=== PATIENT | male | born 1950 | race Hispanic/Latino ===

== ENCOUNTER → 2023-11-20 | Outpatient (CLI) | payer OTHER | END | disposition home or self-care (01) | LOC: RAH 12:30 | PROVIDERS: ATTEND Internal Medicine Cardiovascular Disease | DX: Z13.6 Encounter for screening for cardiovascular disorders (principal); I25.5 Ischemic cardiomyopathy | CPT/HCPCS: 75571 ==

== ENCOUNTER 2024-01-31 07:28 | Day surgery (SDC) | payer OTHER, MEDICARE ==
[2024-01-28 10:55] VITALS: BP 101/65; PULSE 87; RESP 16
[2024-01-28 11:14] LABS: BASOPHILS # (AUTO) 0.04 K/uL (0.00-0.20); BASOPHILS % (AUTO) 0.5 % (0.0-5.0); EOSINOPHILS # (AUTO) 0.13 K/uL (0.00-0.70); EOSINOPHILS % (AUTO) 1.8 % (0.0-8.0); HEMATOCRIT 45.5 % (42-54); IMMATURE GRANULOCYTE ABSOLUTE 0.04 K/uL (0-1); LYMPHOCYTES # (AUTO) 2.2 K/uL (1.0-4.8); LYMPHOCYTES % (AUTO) 30.1 % (21.0-51.0); MEAN CORPUSCULAR HEMOGLOBIN 32.2 pg (27.0-33.0); MEAN CORPUSCULAR HGB CONC 34.1 g/dL (32.0-36.0); MEAN CORPUSCULAR VOLUME 94.6 fL (79-99); MONOCYTES # (AUTO) 0.6 K/uL (0.1-1.0); MONOCYTES % (AUTO) 8.2 % (3.0-13.0); NEUTROPHILS # (AUTO) 4.4 K/uL (1.8-7.7); NEUTROPHILS % (AUTO) 58.9 % (40.0-77.0); PLATELET COUNT (AUTO) 219 K/uL (130-400); RED BLOOD CELL COUNT(AUTO) 4.81 MIL/uL (4.50-6.20); RED CELL DISTRIBUTION WIDTH 12.1 % (11.0-15.5); WHITE BLOOD COUNT (AUTO) 7.4 K/uL (4.8-10.8)
[2024-01-28 11:17] LABS: CREATININE 1.1 mg/dL (0.5-1.3); POTASSIUM 4.4 mmol/L (3.5-5.1)
[2024-01-31] VITALS (12 sets, daily range): BP systolic 92–111; BP diastolic 54–79; PULSE 53–121; RESP 10–18
[~2024-01-31] VITALS: Ht 172.7 cm; Wt 97.6 kg
[~2024-01-31 07:28] MED LIST: APIX5TAB PO; DRON400T7 PO; FURO20TA4 PO; ISOS10TA2 PO; METO-408 PO; ROSU20TA73 PO; SPIR50TA5 PO; TAMS-1 PO
[2024-01-31] MEDS: 0.9%NACL 1000ML 1,000 ML IV ONE (08:18)
== END 2024-01-31 11:30 | disposition home or self-care (01) ==
LOC: DAH 07:28
PROVIDERS: ATTEND Internal Medicine Cardiovascular Disease
DX: I48.19 Other persistent atrial fibrillation (principal); I44.7 Left bundle-branch block, unspecified; E78.5 Hyperlipidemia, unspecified; Z86.711 Personal history of pulmonary embolism; E66.9 Obesity, unspecified; Z79.01 Long term (current) use of anticoagulants; Z79.899 Other long term (current) drug therapy; Z68.32 Body mass index [BMI] 32.0-32.9, adult
CPT/HCPCS: 80048; 85025; 36415; 92960; 93005 ×2; J7030; A4215; A4222; A4221; A4663; A4216; A4606; A4620 ×2; A4223 ×3; 99156

== ENCOUNTER → 2025-04-14 | Outpatient (CLI) | payer OTHER, MEDICARE ==
[~2025-04-14] MED LIST changes: -METO-408 PO; -ROSU20TA73 PO; +ROSU20TA98 PO; -TAMS-1 PO; +TAMS-55 PO
--- NOTE | 2025-04-15 06:06 | HMCIMG ---
EXAM: CR Bilateral Knees, 4 views. CLINICAL HISTORY: Pain. COMPARISON: None provided. FINDINGS: No acute fracture or aggressive appearing osseous lesion. Medial knee joint space is reduced. Osteophytic lipping of articular margin is noted. Generalized osteopenia is seen. There is no joint effusion appreciated. The soft tissues are unremarkable. IMPRESSION: Moderate osteoarthritis. /[place]
== END | disposition home or self-care (01) ==
LOC: RAH 10:59
PROVIDERS: ATTEND Internal Medicine Cardiovascular Disease
DX: M17.0 Bilateral primary osteoarthritis of knee (principal); M25.762 Osteophyte, left knee; M25.761 Osteophyte, right knee; M25.569 Pain in unspecified knee; M85.88 Other specified disorders of bone density and structure, other site
CPT/HCPCS: 73565; 73560